=== PATIENT | female | born 1995 | race Caucasian/White ===

== ENCOUNTER 2017-10-23 16:05 | Emergency (ER) | payer OTHER ==
[~2017-10-23] VITALS: Ht 162.6 cm; Wt 67.0 kg
[~2017-10-23 16:05] MED LIST: INSPMPHMLG
[2017-10-23 16:50] VITALS: Ht 162.6 cm; Wt 67.0 kg
[2017-10-23] MEDS ORDERED: ACETAMINOPHEN 500 MG TAB PO STA (18:30)
[2017-10-23] MEDS ORDERED: SODIUM CHLORIDE 0.9% 1000ML 1,000 ML IV STA (18:30)
[2017-10-23 19:35] LABS: BASO % 0.4 %; BASO ABS # 0.03 K/uL (0-0.2); HEMATOCRIT 39.5 % (37-47); HEMOGLOBIN 14.1 g/dL (12.0-16.0); IG# 0.02 K/uL (0.00-0.02); LYMPH % 9.1 %; LYMPH ABS # 0.78 K/uL (1.2-3.4); MEAN CELL VOLUME 90.8 fL (80-100); MEAN CORPUSCULAR HEMOGLOBIN 32.4 pg (25-34); MEAN CORPUSCULAR HGB CONC 35.7 g/dl (32-36); MEAN PLATELET VOLUME 10.8 fL (7.4-10.4); MONO % 8.4 %; MONO ABS # 0.72 K/uL (0.11-0.59); NEUT % 81.9 %; NEUT ABS # 6.99 K/uL (1.4-6.5); PLATELET COUNT 220 K/uL (130-400); RED CELL DISTRIBUTION WIDTH CV 12.9 % (11.5-14.5); RED CELL DISTRIBUTION WIDTH SD 42.9 fL (36.4-46.3); WHITE BLOOD COUNT 8.54 K/uL (4.8-10.8)
[2017-10-23 19:54] LABS: ALBUMIN 3.5 gm/dl (3.4-5.0); CREATININE 0.91 mg/dl (0.60-1.20); POTASSIUM 3.9 mmol/L (3.5-5.1)
--- NOTE | 2017-10-23 19:54 | DIAGNOSTIC IMAGING REPORT ---
CHEST 2 VIEWS ROUTINE CLINICAL HISTORY: cough, fevers, +flu, eval PNA dyspnea COMPARISON STUDY: No previous studies for comparison. FINDINGS: The bones soft tissues and hemidiaphragms are normal. The cardiomediastinal silhouette is normal. The lungs are clear. The pulmonary vasculature is normal. IMPRESSION: Negative chest. The above report was generated using voice recognition software. It may contain grammatical, syntax or spelling errors. Electronically signed by: Sesar Heaton M.D. 10/23/2017 7:53 PM Dictated Date/Time: 10/23/2017 7:53 PM
--- NOTE | 2017-10-23 20:23 | EMERGENCY ROOM VISIT NOTE ---
History First contact with patient: 18:21 Chief Complaint: FLU LIKE SX Stated Complaint: SORE THROAT, NAUSEA,COUGH,FEVER History of Present Illness The patient is a 22 year old female who presents to the Emergency Room with complaints of flulike symptoms that started last night, with cough, sore throat , body aches and headaches. Today she developed a fever, nausea vomiting and diarrhea. She went to [facility] and tested positive for influenza. She is a type I diabetic on an insulin pump, she reports that her blood sugars were noted to be high today, nearly 400, so she was sent to the emergency department for further evaluation. She states they gave her Zofran which greatly improved her nausea and she is no longer vomiting. She states that her last blood sugar check while she was out in the waiting room as 233 about 30 minutes ago. She states that this has been fluctuating up and down, and she has not been eating much today which she thinks is part of the problem. She reports normal urine output and denies any urinary symptoms. She denies any previous history of admissions for DKA. She denies any symptoms of chest pain, shortness of breath , neck pain or stiffness, dizziness, syncope, abdominal pain, abnormal vaginal bleeding or discharge, or rash. Review of Systems A complete 10 point review of systems was reviewed with the patient with pertinent positives and negatives as per history of present illness. All else were negative. Past Medical/Surgical History Type 1 diabetes Social History Smoking Status: Never Smoker Alcohol Use: occasionally Drug Use: none Marital Status: single Housing Status: lives with roommate Occupation Status: [employer] Current/Historical Medications Scheduled Insulin Human Lispro (Insulin Humalog Pump ), 1 EA N/A UD Oseltamivir (Tamiflu), 75 MG PO BID Allergies No known allergies Physical Exam Vital Signs Date Time Temp Pulse Resp B/P (MAP) Pulse Ox O2 Delivery O2 Flow Rate FiO2 10/23/17 21:36 37.4 97 18 108/70 97 10/23/17 20:41 37.2 100 18 117/69 97 Room Air 10/23/17 18:34 109 18 120/70 97 Room Air 10/23/17 16:50 38.1 121 20 118/82 97 Room Air Physical Exam CONSTITUTIONAL: Pleasant and cooperative. No acute distress. Moderately dehydrated. Otherwise well appearing and well nourished. HEENT: Normocephalic, atraumatic. Pupils equal, round and reactive to light, EOMI. TMs normal. Pharynx normal. Dry mucous membranes. NECK: Supple, full active range of motion without discomfort. RESPIRATORY: Clear to auscultation bilaterally with no wheezing, crackles, rhonchi or stridor. Equal expansion bilaterally. CARDIOVASCULAR: Regular rate and rhythm with no murmurs, rubs or gallops. Normal peripheral perfusion. No edema. GASTROINTESTINAL: Soft, nontender, nondistended. No palpable masses or HSM. Bowel sounds present in all quadrants. MUSCULOSKELETAL: Full range of motion of all joints without discomfort. INTEGUMENTARY: No rash or other significant dermatologic conditions noted. NEUROLOGIC: Alert and oriented X 4 with normal affect. No focal neurologic deficits noted. Normal strength and sensation in all 4 cherries. Normal speech. Normal gait observed. Medical Decision & Procedures ER Provider Diagnostic Interpretation: CHEST 2 VIEWS ROUTINE CLINICAL HISTORY: cough, fevers, +flu, eval PNA dyspnea COMPARISON STUDY: No previous studies for comparison. FINDINGS: The bones soft tissues and hemidiaphragms are normal. The cardiomediastinal silhouette is normal. The lungs are clear. The pulmonary vasculature is normal. IMPRESSION: Negative chest. Laboratory Results 10/23/17 19:26 Red Blood Count 4.35, Mean Corpuscular Volume 90.8, Mean Corpuscular Hemoglobin 32.4, Mean Corpuscular Hemoglobin Concent 35.7, Mean Platelet Volume 10.8, Neutrophils (%) (Auto) 81.9, Lymphocytes (%) (Auto) 9.1, Monocytes (%) (Auto) 8.4, Eosinophils (%) (Auto) 0.0, Basophils (%) (Auto) 0.4, Neutrophils # (Auto) 6.99, Lymphocytes # (Auto) 0.78, Monocytes # (Auto) 0.72, Eosinophils # (Auto) 0.00, Basophils # (Auto) 0.03 10/23/17 19:26 Test 10/23/17 18:55 10/23/17 19:23 10/23/17 19:26 Urine Color YELLOW Urine Appearance CLEAR (CLEAR) Urine pH 5.0 (4.5-7.5) Urine Specific [place] 1.043 (1.000-1.030) Urine Protein TRACE (NEG) Urine Glucose (UA) 3+ (NEG) Urine Ketones 4+ (NEG) Urine Occult Blood TRACE (NEG) Urine Nitrite NEG (NEG) Urine Bilirubin NEG (NEG) Urine Urobilinogen NEG (NEG) Urine Leukocyte Esterase NEG (NEG) Urine WBC (Auto) 5-10 /hpf (0-5) Urine RBC (Auto) 0-4 /hpf (0-4) Urine Hyaline Casts (Auto) 1-5 /lpf (0-5) Urine Epithelial Cells (Auto) >30 /lpf (0-5) Urine Bacteria (Auto) 1+ (NEG) Venous Blood pH 7.39 (7.36-7.41) Venous Blood Partial Pressure CO2 37 mmHg (38.0-50.0) Venous Blood Partial Pressure O2 27 mmHg Venous Blood HCO3 22 mmol/L Venous Blood Oxygen Saturation < 60.0 % Venous Blood Base Excess -2.5 mEq/L White Blood Count 8.54 K/uL (4.8-10.8) Red Blood Count 4.35 M/uL (4.2-5.4) Hemoglobin 14.1 g/dL (12.0-16.0) Hematocrit 39.5 % (37-47) Mean Corpuscular Volume 90.8 fL (80-100) Mean Corpuscular Hemoglobin 32.4 pg (25-34) Mean Corpuscular Hemoglobin Concent 35.7 g/dl (32-36) Platelet Count 220 K/uL (130-400) Mean Platelet Volume 10.8 fL (7.4-10.4) Neutrophils (%) (Auto) 81.9 % Lymphocytes (%) (Auto) 9.1 % Monocytes (%) (Auto) 8.4 % Eosinophils (%) (Auto) 0.0 % Basophils (%) (Auto) 0.4 % Neutrophils # (Auto) 6.99 K/uL (1.4-6.5) Lymphocytes # (Auto) 0.78 K/uL (1.2-3.4) Monocytes # (Auto) 0.72 K/uL (0.11-0.59) Eosinophils # (Auto) 0.00 K/uL (0-0.5) Basophils # (Auto) 0.03 K/uL (0-0.2) RDW Standard Deviation 42.9 fL (36.4-46.3) RDW Coefficient of Variation 12.9 % (11.5-14.5) Immature Granulocyte % (Auto) 0.2 % Immature Granulocyte # (Auto) 0.02 K/uL (0.00-0.02) Anion Gap 10.0 mmol/L (3-11) Est Creatinine Clear Calc Drug Dose 92.8 ml/min Estimated GFR () 105.3 Estimated GFR (Non- 90.8 BUN/Creatinine Ratio 8.5 (10-20) Calcium Level 9.0 mg/dl (8.5-10.1) Total Bilirubin 0.6 mg/dl (0.2-1) Direct Bilirubin 0.1 mg/dl (0-0.2) Aspartate Amino Transf (AST/SGOT) 11 U/L (15-37) Alanine Aminotransferase (ALT/SGPT) 21 U/L (12-78) Alkaline Phosphatase 83 U/L (45-117) Total Protein 8.0 gm/dl (6.4-8.2) Albumin 3.5 gm/dl (3.4-5.0) Lipase 68 U/L (73-393) Human Chorionic Gonadotropin, Qual NEG (NEG) Medications Administered Medications (Trade) Dose Ordered Sig/Eileen Route Start Time Stop Time Status Last Admin Dose Admin Sodium Chloride 1,000 ml @ 999 mls/hr Q1H1M STAT IV 10/23/17 18:30 10/23/17 19:30 DC 10/23/17 19:35 999 MLS/HR Acetaminophen (Tylenol Tab) 1,000 mg NOW STAT PO 10/23/17 18:30 10/23/17 18:36 DC 10/23/17 19:35 1,000 MG Oseltamivir Phosphate (Tamiflu Cap) 75 mg NOW STAT PO 10/23/17 21:12 10/23/17 21:13 DC 10/23/17 21:32 75 MG Medical Decision CC: Patient presenting with complaint of flulike symptoms, high blood sugar Interpretation of Labs: No leukocytosis, no anemia, hyperglycemia with mild hyponatremia, no other significant electrolyte abnormality, gap is closed, normal renal function, normal liver enzymes and lipase. VBG shows normal pH. UA shows large ketones and large glucose, negative for infection. Differential Diagnosis: Includes, but not limited to influenza, dehydration, pneumonia, hyperglycemia, DKA, electrolyte imbalance, UTI, among others. Medication Reconciliation: I attest that I have personally reviewed the patient' s current medication list. Initial vital signs review: I reviewed the patient's vital signs and interpret them as follows: T: Febrile; BP: Normotensive; HR: Tachycardic; RR: Within normal limits; Pulse Ox: Within normal limits on room air. Blood pressure screening: The patient was found to have normal blood pressure on screening and does not require follow-up for repeat blood pressure check. Summary: Patient was evaluated at bedside, history and physical exam performed. Patient is alert and oriented, no acute distress, nontoxic appearing, resting calmly in the stretcher. Patient is febrile, notably tachycardic, and appears moderately dehydrated on exam. She currently denies any headaches or significant pain of any kind. She reports her nausea and vomiting have greatly improved after receiving an ODT Zofran at urgent care. Orders were placed at bedside for labs, UA and urine , IV fluids for hydration, chest x-ray to evaluate for pneumonia. Patient discussed with Dr. Hicks, who agrees with my assessment and plan. Labs reviewed as above, consistent with dehydration, but no significant abnormalities, specifically she is not in DKA. Chest x-ray unremarkable, negative for pneumonia. The patient was given a dose of Tamiflu here and provided with prescription for Tamiflu to treat her influenza. Patient reassessed multiple times throughout ED stay, she were she feels much better after Tylenol and IV fluids, has continued to have improved nausea and is tolerating oral fluids. Patient was updated on all results and plan for discharge home, and encouraged to follow closely with her PCP or [facility]. Patient was also given strict return precautions should her symptoms worsen in anyway, she verbalized understanding. The patient was discharged home in stable condition and ambulatory. Impression Primary Impression: Influenza Additional Impression: Dehydration Departure Information Dispostion Home / Self-Care Condition GOOD Prescriptions Oseltamivir (Tamiflu) 75 Mg Cap 75 MG PO BID for 5 Days, #9 CAP Prov: Linda Dill CRNP 10/23/17 Referrals [facility] (PCP) Patient Instructions ED Dehydration, ED Effusion Pleural, My [facility] Additional Instructions You have been treated in the Emergency Department today for Dehydration. Test results today are POSITIVE for influenza type A. This is most likely the cause of all of your symptoms. Influenza is a type of virus that should run its course and symptoms should be improved after 7-10 days, but may last up to 14 days. Take the Tamiflu as prescribed, twice a day for 5 days. This is to help treat your flu symptoms. This medication may cause stomach upset, take with food. For fevers and body aches/headaches, you may take the following over-the- counter medications: - Extra strength Tylenol (500 mg) 1-2 tablets every 6-8 hours as needed. Do not take more than 6 tablets (3000 mg) in 24 hours. - Ibuprofen (200 mg) 3 tablets every 6-8 hours as needed. Do not take more than 2400 mg in 24 hours. - For best results, you may alternate between the Tylenol and the ibuprofen every 3-4 hours for severe body aches and fevers. It is ESSENTIAL that you maintain adequate hydration with oral fluids! Some suggestions include: - Water is the IDEAL replacement for lost fluids. You should initially sip at the water to help facilitate increased intestinal absorption rate and to decrease the possibility of nausea/vomiting. - Carbohydrate/Electrolyte-Containing Drinks (i.e. Gatorade, Powerade, Pedialyte). All of these are good choices, but it is important to remember that all of these drinks contain a high concentration of sugar. - Popsicles, ice chips, and fruit juices are all other options. - My FAVORITE dehydration remedy is to mix a 1:1 solution of bottled Gatorade with bottled water. This dilution allows for a palatable flavor with added benefit of a reduction in the amount of sugar consumption. As with all Emergency Department visits, you should follow-up with your Primary Care Provider in 2-3 days for reevaluation. You should call and discuss with the student health center regarding guidelines for return to campus/class. Please return to the emergency department for any worsening symptoms, including difficulty breathing, chest pain, coughing up blood, severe dizziness or passing out, confusion, severe headache, or any other concerns. School Instructions Return To School: 3 days Problem Qualifiers
[2017-10-23] MEDS ORDERED: OSELTAMIVIR PHOSPHATE 75 MG CAP PO STA (21:12)
[2017-10-23] MEDS ORDERED: OSEL75CA12 PO (21:12)
[2017-10-23 21:36] VITALS: BP 108/70; PULSE 97; TEMP 37.4; O2SAT 97
--- NOTE | 2017-10-24 13:10 | Pharmacy Progress Note ---
ED Pharmacist Progress Note Date of Service: Oct 24, 2017. Patient called this AM because she wanted Rx for Tamiflu sent to [facility] [place] [phone] rather than [facility]. She was also requesting Rx for antinausea medication. Patient was dx with influenza by [facility]. She presented to ER with hyperglycemia and nausea. She is a type 1 diabetic. Rx for Tamiflu 75mg PO BID # 9 was e-prescribed to [facility], however I did speak with the [facility] there today and she stated the Rx was transferred to [facility] location earlier today. I reviewed case w/ Dr Pool, he authorized Rx for Zofran 4mg tab 1 PO Q 6 hrs prn nausea, # 6, no refills. I called this Rx to [facility] and attempted to notify the patient ([phone]), I did leave a message on her voice mail.
== END 2017-10-23 21:36 | disposition home or self-care (01) ==
LOC: C.EDB 16:08 → C.EDA 21:36
DX: J11.1 Influenza due to unidentified influenza virus with other respiratory manifestations (principal); E86.0 Dehydration; E10.65 Type 1 diabetes mellitus with hyperglycemia; Z96.41 Presence of insulin pump (external) (internal)